=== PATIENT | female | born 1990 | race Caucasian/White ===

== ENCOUNTER 2019-10-30 05:23 | Day surgery (SDC) | payer MEDICAID ==
[2019-10-29 15:32] LABS: BASOPHILS # (AUTO) 0.1 X10'3 (0-0.2); BASOPHILS % (AUTO) 0.9 % (0-1); EOSINOPHILS # (AUTO) 0.2 X10'3 (0-0.9); EOSINOPHILS % (AUTO) 2.8 % (0-6); LYMPHOCYTES # (AUTO) 1.5 X10'3 (1.1-4.8); LYMPHOCYTES % (AUTO) 21.2 % (21-51); MEAN CORPUSCULAR HEMOGLOBIN 30.3 PG (27.0-31.0); MEAN CORPUSCULAR HGB CONC 33.7 g/dL (33.0-36.5); MEAN CORPUSCULAR VOLUME 89.8 FL (78-98); MEAN PLATELET VOLUME 10.1 FL (7.4-10.4); MONOCYTES # (AUTO) 0.7 X10'3 (0-0.9); MONOCYTES % (AUTO) 9.1 % (2-12); NEUTROPHILS # (AUTO) 4.7 X10'3 (1.8-7.7); PRE OP HEMATOCRIT 38.5 % (35.0-45.0); PRE OP PLATELET COUNT 210 X10'3 (140-440); RED BLOOD COUNT 4.28 X10'6 (4.20-5.60)
[2019-10-29 15:44] LABS: ALBUMIN 3.7 G/DL (3.4-5.0); ALBUMIN/GLOBULIN RATIO 0.9 (1.1-1.5); ALKALINE PHOSPHATASE 89 IU/L (46-116); BLOOD UREA NITROGEN 16 MG/DL (7-18); BUN/CREATININE RATIO 20.8 (6.6-38.0); CHLORIDE 102 MMOL/L (99-107); CREATININE 0.77 MG/DL (0.40-0.90); PRE OP ALT 38 U/L (30-65); PRE OP ANION GAP 9 (8-16); PRE OP AST 25 U/L (10-37); PRE OP BILIRUB, TOTAL 0.5 MG/DL (0.0-1.0); PRE OP GLUCOSE 88 MG/DL (70-104); PRE OP POTASSIUM 3.5 MMOL/L (3.4-5.1); PRE OP SODIUM 139 MMOL/L (135-145); TOTAL CARBON DIOXIDE 27.6 MMOL/L (24-32); TOTAL PROTEIN 7.8 G/DL (6.4-8.2); eGFR 87 ML/MIN
[2019-10-29 16:01] LABS: HCG SERUM QL NEGATIVE
[~2019-10-30] VITALS: Ht 167.6 cm; Wt 77.1 kg
[2019-10-30] VITALS (7 sets, daily range): BP systolic 115–150; BP diastolic 63–95
[~2019-10-30 05:23] MED LIST: NORG1TAB86 PO; VITAMIN C POWDER; ringers solution, lacted 1,000 ML IV SCH
[2019-10-30] MEDS ORDERED: famotidine 20mg tablet PO ONE (05:30)
[2019-10-30] MEDS ORDERED: LIDOcaine 1% (10mg/ml) 2ml vial ONE (06:00)
[2019-10-30] MEDS ORDERED: ringers solution, lacted 1,000 ML IV SCH (07:18)
[2019-10-30] MEDS ORDERED: ondansetron/PF 4mg/2ml inj IV PRN (07:20)
[2019-10-30] MEDS ORDERED: morphine 4 MG/ML inj SYRINge IV PRN ×2 (07:20)
[2019-10-30] MEDS ORDERED: meperidine/PF 25mg/ml syringe IV PRN ×2 (07:20)
[2019-10-30] MEDS ORDERED: proCHLORperazine 10 MG/2 ml inj IV PRN (07:20)
[2019-10-30] MEDS ORDERED: fentaNYL/PF 50MCG/1 ML 2ML syringe ONE (07:22)
[2019-10-30] MEDS ORDERED: midazolam 2 mg/2 ml injection ONE (07:23)
[2019-10-30] MEDS ORDERED: sevoflurane 250ml liquid IH ONE (07:30)
[2019-10-30] MEDS ORDERED: ePHEDrine 50MG/ML INJ. ONE (07:30)
[2019-10-30] MEDS ORDERED: propofol inj 20 ML IV ONE (07:33)
[2019-10-30] MEDS ORDERED: dexamethasone sod phosphate 4mg/ml inj. ONE ×2 (07:33→08:10)
[2019-10-30] MEDS ORDERED: LIDOcaine 2% (20mg/ml) 5ml vial ONE (07:33)
[2019-10-30] MEDS ORDERED: rocuronium 10mg/ml inj IV ONE (07:33)
[2019-10-30] MEDS ORDERED: neostigmine methylsulfate 1 MG/ML 10ml vial ONE (08:10)
[2019-10-30] MEDS ORDERED: ondansetron/PF 4mg/2ml inj ONE (08:10)
[2019-10-30] MEDS ORDERED: glycopyrrolate 0.2mg/ml inj ONE (08:10)
--- NOTE | 2019-10-30 08:21 | NUR ---
Received from OR via wendy, accompanied by Anesthesiologist Donald and report given by Anesthesiolgist. Pt responsive to stimuli, all VS stable, mask at 10L. One bandiad to abdomen CDI, rolando pad CDI. 20G to right wrist with LR at 100cc/hr.
[2019-10-30] MEDS: meperidine/PF 25mg/ml syringe IV PRN ×2 (08:31→08:53)
--- NOTE | 2019-10-30 09:51 | NUR ---
Pt discharged to vehicle after picking up valuables from safe, by wheelchair without incident. Pt alert and oriented, her and S/O verbalized understanding of all discharge information. Bandaid remains dry and intact. Clean rolando pad given to patient. she states she is on her period day 1-2 so she does have some bleeding. We discussed what to watch for and if flow does not taper down to call MD and come back to ER. IV dc'd. Pt back in her own clothing and has her own belongings. Prescription called in to [facility] on [address]. Pt has eaten, drank fluids, voided and ambulated.
== END 2019-10-30 09:51 | disposition home or self-care (01) ==
LOC: PAS 05:23
PROVIDERS: ATTEND Obstetrics & Gynecology
DX: Z30.2 Encounter for sterilization (principal); M19.90 Unspecified osteoarthritis, unspecified site; F41.9 Anxiety disorder, unspecified; Z88.0 Allergy status to penicillin; Z88.8 Allergy status to other drugs, medicaments and biological substances; Z98.890 Other specified postprocedural states; Z79.899 Other long term (current) drug therapy; Z72.89 Other problems related to lifestyle
CPT/HCPCS: 36415; 58670; 80053; 82948; 84703; 85025; J1100; J2001; J2175; J2250; J2405; J2704; J2710; J3010; J7120; A4618; A7000; J3490